=== PATIENT | female | born 1935 | race Native Hawaiian/Other Pacific Islander ===

== ENCOUNTER 2016-07-08 18:04 | Inpatient (IN) | payer OTHER ==
[~2016-07-08] VITALS: Ht 162.6 cm; Wt 111.1 kg
[~2016-07-08 18:04] MED LIST: ASA LO-DOSE81 MG OR; BENA20TA2 PO; CRESTOR20 MG PO; DIOVAN HCT PO; FISH OIL1000 M1 OR; HYDROCHLOROT12.5 M1 PO; METO50TA27 PO; MULTIVITAMI1 OR; NIACIN ER500 MG OR; OMEPRAZOLE20 M1 OR; OMEPRAZOLE20 M1 PO; POMEGRANATE OR; SPIRONOLACT25 MG PO; VALSARTAN160 MG PO; VICTOZA18 MG/3 ML SC; VITAMIN C + OR; VITAMIN D1000 UNIT OR; ZOCOR80 MG OR
[2016-07-08 18:15] VITALS: BP 185/95; TEMP 98.4
[2016-07-08 19:20] LABS: PLATELET COUNT 214 K/uL (152-353)
[2016-07-08 19:31] LABS: POTASSIUM 3.9 mmol/L (3.6-5.2); SODIUM 134 mmol/L (136-145)
[2016-07-08 22:15] VITALS: BP 174/92; TEMP 98; Ht 162.6 cm; Wt 111.1 kg
[2016-07-09] VITALS (7 sets, daily range): BP systolic 139–1145; BP diastolic 51–87; TEMP 97.4–98.1
[2016-07-09 06:15] LABS: PLATELET COUNT 195 K/uL (152-353)
[2016-07-09 06:39] LABS: POTASSIUM 3.7 mmol/L (3.6-5.2); SODIUM 137 mmol/L (136-145)
[2016-07-09] MEDS ORDERED: METF500T PO (09:57)
[2016-07-09] MEDS ORDERED: VICTOZA18 MG/3 ML SC (09:59)
[2016-07-10 04:00] VITALS: BP 158/81; TEMP 97.4
[2016-07-10 06:07] LABS: PLATELET COUNT 174 K/uL (152-353)
[2016-07-10 06:26] LABS: POTASSIUM 3.6 mmol/L (3.6-5.2); SODIUM 136 mmol/L (136-145)
[2016-07-10 07:44] VITALS: BP 167/75; TEMP 98
[2016-07-10 11:51] VITALS: BP 171/85; TEMP 98.6
[2016-07-10 16:00] VITALS: BP 144/74; TEMP 98.7
[2016-07-10 20:00] VITALS: BP 182/83; TEMP 98.2
[2016-07-11] VITALS: BP 131/87; TEMP 97.43
[2016-07-11 04:00] VITALS: BP 147/92; TEMP 97.8
[2016-07-11 06:01] LABS: PLATELET COUNT 188 K/uL (152-353)
[2016-07-11 06:16] LABS: POTASSIUM 3.6 mmol/L (3.6-5.2); SODIUM 133 mmol/L (136-145)
[2016-07-11 08:00] VITALS: BP 176/87; TEMP 98.3
[2016-07-11 12:00] VITALS: BP 171/92; TEMP 97.5
== END 2016-07-11 15:20 | disposition home or self-care (01) | DRG 446 ==
LOC: ED 18:04 → MED/SURG 20:37
PROVIDERS: Emergency Medicine; Internal Medicine; ADMIT Specialist
DX: K80.80 Other cholelithiasis without obstruction (principal); E83.42 Hypomagnesemia; R74.8 Abnormal levels of other serum enzymes; R11.2 Nausea with vomiting, unspecified; E11.9 Type 2 diabetes mellitus without complications
CPT/HCPCS: 36415; 80053; 81000; 82150; 82272; 82550; 82553; 82948; 83605; 83615; 83690; 83735; 84100; 84484; 85027; 85379; 86318; 93005; 96365; 96372; 96374; 96375; 99284; J2175; J2405; J3475; J3490; Q9963

== ENCOUNTER 2016-07-23 11:52 | Outpatient (CLI) | payer OTHER ==
[~2016-07-23 11:52] MED LIST changes: +METF500T PO
[2016-07-23 12:43] LABS: PLATELET COUNT 284 K/uL (152-353)
[2016-07-24 14:36] LABS: POTASSIUM 4.1 mmol/L (3.6-5.2); SODIUM 137.5 mmol/L (136-145)
[2016-07-24 14:38] LABS: LDL CHOLESTEROL 128.8 mg/dL (0-99*)
== END 2016-07-23 23:04 | disposition home or self-care (01) ==
LOC: LAB 11:52
PROVIDERS: Nurse Practitioner Family
DX: E11.9 Type 2 diabetes mellitus without complications (principal); E78.4 Other hyperlipidemia; I10 Essential (primary) hypertension; Z79.899 Other long term (current) drug therapy; Z51.81 Encounter for therapeutic drug level monitoring
CPT/HCPCS: 80053; 80061; 83036; 84439; 84443; 85027

== ENCOUNTER 2016-07-25 10:31 | Outpatient (CLI) | payer OTHER | END 2016-07-25 23:42 | disposition home or self-care (01) | LOC: MAMMO 10:31 | DX: Z12.31 Encounter for screening mammogram for malignant neoplasm of breast (principal) | CPT/HCPCS: G0202-TC ==

== ENCOUNTER 2016-07-30 09:55 | Outpatient (CLI) | payer OTHER | END 2016-07-30 20:03 | disposition home or self-care (01) | LOC: CT 09:55 | DX: R93.8 Abnormal findings on diagnostic imaging of other specified body structures (principal); J44.9 Chronic obstructive pulmonary disease, unspecified | CPT/HCPCS: G0202-TC ==

== ENCOUNTER 2016-09-12 08:14 | Outpatient (CLI) | payer OTHER ==
[2016-09-12 08:38] LABS: PLATELET COUNT 506 K/uL (152-353)
[2016-09-12 08:55] LABS: POTASSIUM 3.5 mmol/L (3.6-5.2)
== END 2016-09-12 19:11 | disposition home or self-care (01) ==
LOC: US 08:14
PROVIDERS: Surgery
DX: R06.09 Other forms of dyspnea (principal); G89.18 Other acute postprocedural pain
CPT/HCPCS: 36415; 80053; 85027

== ENCOUNTER 2016-11-07 14:47 | Outpatient (CLI) | payer OTHER ==
[2016-11-07 15:17] LABS: PLATELET COUNT 240 K/uL (152-353)
[2016-11-07 16:29] LABS: POTASSIUM 4.2 mmol/L (3.6-5.2); SODIUM 137 mmol/L (136-145)
== END 2016-11-07 15:50 | disposition home or self-care (01) ==
LOC: LAB 14:47
PROVIDERS: Nurse Practitioner Family
DX: E83.42 Hypomagnesemia (principal); I10 Essential (primary) hypertension; K57.32 Diverticulitis of large intestine without perforation or abscess without bleeding; R53.81 Other malaise; E66.8 Other obesity; E55.9 Vitamin D deficiency, unspecified; E11.9 Type 2 diabetes mellitus without complications
CPT/HCPCS: 80053; 80061; 82306; 82607; 83036; 84436; 84443; 85027

== ENCOUNTER 2016-12-06 09:18 | Emergency (ER) | payer OTHER ==
[~2016-12-06] VITALS: Ht 162.6 cm; Wt 104.3 kg
[2016-12-06 09:31] VITALS: TEMP 97.5
[2016-12-06 10:01] LABS: PLATELET COUNT 212 K/uL (152-353)
[2016-12-06 10:16] LABS: POTASSIUM 4.4 mmol/L (3.6-5.2)
[2016-12-06 11:58] VITALS: BP 152/94
== END 2016-12-06 11:55 | disposition home or self-care (01) ==
LOC: ED 09:18
DX: R42 Dizziness and giddiness (principal); G45.8 Other transient cerebral ischemic attacks and related syndromes; G31.89 Other specified degenerative diseases of nervous system; M50.322 Other cervical disc degeneration at C5-C6 level; M50.323 Other cervical disc degeneration at C6-C7 level; M48.02 Spinal stenosis, cervical region; R82.71 Bacteriuria; E11.9 Type 2 diabetes mellitus without complications
CPT/HCPCS: 36415; 80053; 81000; 83036; 84484; 85027; 93005; 99283

== ENCOUNTER 2017-07-19 09:14 | Outpatient (CLI) | payer OTHER | END 2017-07-19 19:28 | disposition home or self-care (01) | LOC: US 09:14 | DX: R59.1 Generalized enlarged lymph nodes (principal) ==

== ENCOUNTER 2017-07-22 14:48 | Outpatient (CLI) | payer OTHER ==
[2017-07-22 15:22] LABS: POTASSIUM 4.1 mmol/L (3.6-5.2)
[2017-07-22 15:54] LABS: PLATELET COUNT 222 K/uL (152-353)
== END 2017-07-22 19:42 | disposition home or self-care (01) ==
LOC: LAB 14:48
PROVIDERS: Nurse Practitioner Family
DX: I10 Essential (primary) hypertension (principal); E11.9 Type 2 diabetes mellitus without complications; E83.42 Hypomagnesemia; R10.84 Generalized abdominal pain; E78.4 Other hyperlipidemia; R53.83 Other fatigue; K57.32 Diverticulitis of large intestine without perforation or abscess without bleeding; E66.8 Other obesity; E55.9 Vitamin D deficiency, unspecified
CPT/HCPCS: 80053; 82306; 83036; 84439; 84443; 85027

== ENCOUNTER 2017-07-23 09:58 | Outpatient (CLI) | payer OTHER | END 2017-07-23 19:04 | disposition home or self-care (01) | LOC: CT 09:58 | DX: I10 Essential (primary) hypertension (principal); R22.1 Localized swelling, mass and lump, neck | CPT/HCPCS: Q9963 ==

== ENCOUNTER 2017-11-26 13:21 | Outpatient (CLI) | payer OTHER ==
[2017-11-26 13:49] LABS: PLATELET COUNT 237 K/uL (152-353)
[2017-11-26 14:14] LABS: POTASSIUM 3.4 mmol/L (3.6-5.2)
== END 2017-11-26 19:52 | disposition home or self-care (01) ==
LOC: LAB 13:21
PROVIDERS: Nurse Practitioner Family
DX: E11.9 Type 2 diabetes mellitus without complications (principal); I10 Essential (primary) hypertension; E78.4 Other hyperlipidemia; E66.8 Other obesity; R53.82 Chronic fatigue, unspecified; R53.81 Other malaise
CPT/HCPCS: 80053; 80061; 83036; 84436; 84443; 85027

== ENCOUNTER 2018-01-30 09:51 | Outpatient (CLI) | payer OTHER | END 2018-01-30 19:18 | disposition home or self-care (01) | LOC: US 09:51 | DX: I12.9 Hypertensive chronic kidney disease with stage 1 through stage 4 chronic kidney disease, or unspecified chronic kidney disease (principal); N18.3 Chronic kidney disease, stage 3 (moderate); E11.22 Type 2 diabetes mellitus with diabetic chronic kidney disease; E78.4 Other hyperlipidemia; E66.8 Other obesity ==

== ENCOUNTER 2018-02-12 11:35 | Inpatient (IN) | payer OTHER ==
[~2018-02-12] VITALS: Ht 165.1 cm; Wt 105.7 kg
[2018-02-12 12:16] LABS: PLATELET COUNT 290 K/uL (152-353)
[2018-02-12 12:40] LABS: POTASSIUM 2.9 mmol/L (3.6-5.2); SODIUM 137 mmol/L (136-145)
[2018-02-12 12:45] LABS: PARTIAL THROMBOPLASTIN TIME 24.8 SECONDS (24.5-33.6)
[2018-02-12 14:24] VITALS: BP 110/55; TEMP 97.5; Ht 165.1 cm; Wt 105.7 kg
[2018-02-12] MEDS ORDERED: METO50TA27 PO (15:45)
--- NOTE | 2018-02-12 16:40 | NUR ---
IV POTASSIUM CHLORIDE 40 MEQ MIXED IN WITH 0.9% NS X 500ML HUNG AND INFUSING AT 125ML/HR VIA 20G IV TO LEFT AC. STOPPED PROCALAMINE 3% AT 50ML/HR IN 1000 ML BOTTLE FROM INFUSING DUE TO HANGING THE ABOVE.
[2018-02-12 20:00] VITALS: BP 131/67; TEMP 98
[2018-02-13] VITALS (7 sets, daily range): BP systolic 115–173; BP diastolic 63–89; TEMP 98–98.9
[2018-02-13 05:17] LABS: PLATELET COUNT 178 K/uL (152-353)
[2018-02-13 05:32] LABS: POTASSIUM 3.7 mmol/L (3.6-5.2)
[2018-02-14 03:52] VITALS: BP 137/65; TEMP 97.7
[2018-02-14 06:00] LABS: PLATELET COUNT 150 K/uL (152-353)
[2018-02-14 06:09] LABS: POTASSIUM 3.2 mmol/L (3.6-5.2)
[2018-02-14 08:04] VITALS: BP 138/78; TEMP 98.2
[2018-02-14 12:10] VITALS: BP 138/71; TEMP 98.4
[2018-02-14 16:04] VITALS: BP 135/77; TEMP 97.9
[2018-02-14 20:00] VITALS: BP 130/72; TEMP 98
[2018-02-15] VITALS: BP 135/72; TEMP 97.8
[2018-02-15 04:00] VITALS: BP 148/74; TEMP 98.4
[2018-02-15 05:58] LABS: PLATELET COUNT 111 K/uL (152-353)
[2018-02-15 06:06] LABS: POTASSIUM 3.1 mmol/L (3.6-5.2)
[2018-02-15 08:01] VITALS: BP 127/72; TEMP 98.4
--- NOTE | 2018-02-15 11:25 | NUR ---
SPOKE WITH PATIENT AND FAMILY AT LENGTH THIS MORNING CONCERNING HOSPICE. FAMILY WOULD LIKE HOSPICE AND WOULD LIKE TO USE [facility]. PATIENT WANTED TO THINK ABOUT IT OVER NIGHT BEFORE MAKING A FINAL DECISION. I WILL SPEAK WITH THE PATIENT AGAIN IN THE MORNING.
[2018-02-15 11:35] VITALS: BP 129/75; TEMP 98.7
[2018-02-15 16:00] VITALS: BP 114/72; TEMP 98.2
[2018-02-15 20:13] VITALS: BP 110/67; TEMP 97.6
--- NOTE | 2018-02-15 23:26 | NUR ---
02/15/182314 PT OFFERED SOMETHING TO DRINK ONLY WILL TAKE SIP OF HER BEVERAGE FAMILY PRESENT IN ROOM.CC
[2018-02-16] VITALS: BP 109/62; TEMP 97.5
--- NOTE | 2018-02-16 01:32 | NUR ---
02/16/18 0030 PT REPOSTIONED OFFERED SOMETHING TO DRINK BUT REFUSED.BRIEF CHANGED WITH MODERATE AMOUNT URINE CLEAR.PT PULLED UP IN BED DROWSY NAD NOTED.CC
[2018-02-16 04:00] VITALS: BP 114/61; TEMP 97.6
[2018-02-16 05:17] LABS: PLATELET COUNT 144 K/uL (152-353)
[2018-02-16 05:38] LABS: POTASSIUM 3.1 mmol/L (3.6-5.2)
--- NOTE | 2018-02-16 06:39 | NUR ---
02/16/18 0639 REPOSTIONED FOR COMFORT.CC
[2018-02-16 08:03] VITALS: BP 128/69; TEMP 98.7
[2018-02-16 11:31] VITALS: BP 117/63; TEMP 97.6
--- NOTE | 2018-02-16 12:55 | NUR ---
SPOKE WITH PATIENT AND FAMILY THIS MORNING. PATIENT HAS AGREED TO HOSPICE AND SIGNED A DNR TODAY. FAMILY HAS CHOSEN [facility] AND WOULD LIKE TO SPEAK WITH SOMEONE ONE TOMORROW FROM HOSPICE.
[2018-02-16 16:00] VITALS: BP 121/65; TEMP 98.4
[2018-02-16 20:00] VITALS: BP 121/74; TEMP 97.6
[2018-02-17] VITALS (7 sets, daily range): BP systolic 112–159; BP diastolic 64–83; TEMP 96.7–98.7
[2018-02-17 04:29] LABS: PLATELET COUNT 149 K/uL (152-353)
[2018-02-17 04:44] LABS: POTASSIUM 3.2 mmol/L (3.6-5.2)
[2018-02-17] MEDS ORDERED: LEVO250T2 PO (14:42)
[2018-02-17] MEDS ORDERED: PANTOPRAZOLE 40MG TA PO (14:42)
--- NOTE | 2018-02-17 15:31 | NUR ---
Bashir ANDERSON FROM [facility] SPEAKING TO FAMILY AT THIS TIME. PT WILL BE DISCHARGED HOME UNDER HOSPICE IN AM
[2018-02-18 03:57] VITALS: BP 123/68; TEMP 98.2
[2018-02-18 08:00] VITALS: BP 125/64; TEMP 98
[2018-02-18 08:11] LABS: PLATELET COUNT 156 K/uL (152-353)
[2018-02-18 08:34] LABS: POTASSIUM 3.4 mmol/L (3.6-5.2)
[2018-02-18 12:00] VITALS: BP 102/54; TEMP 97.5
--- NOTE | 2018-02-18 18:00 | NUR ---
IV D/C'D WITH TIP INTACT PRESSURE DRESSING APPLIED. PT D/C'D HOME VIA [facility].
== END 2018-02-18 18:00 | disposition home health service (06) | DRG 433 ==
LOC: MED/SURG 11:35
PROVIDERS: ADMIT Nurse Practitioner Family
DX: K74.69 Other cirrhosis of liver (principal); J44.1 Chronic obstructive pulmonary disease with (acute) exacerbation; E87.1 Hypo-osmolality and hyponatremia; I10 Essential (primary) hypertension; E78.4 Other hyperlipidemia; J44.9 Chronic obstructive pulmonary disease, unspecified; E11.9 Type 2 diabetes mellitus without complications; E66.01 Morbid (severe) obesity due to excess calories; E86.0 Dehydration; R53.81 Other malaise; C4A.9 Merkel cell carcinoma, unspecified; Z86.73 Personal history of transient ischemic attack (TIA), and cerebral infarction without residual deficits; E87.6 Hypokalemia; E83.42 Hypomagnesemia; K57.90 Diverticulosis of intestine, part unspecified, without perforation or abscess without bleeding
CPT/HCPCS: 80053; 81000; 82550; 82553; 82948; 83615; 83735; 84484; 85027; 85610; 85730; 87040; 93005; 94760; 96372; J0456; J0696; J1650; J1815; J2270; J2405; J2550; J3475; J3480; J3490